=== PATIENT | female | born 1990 | race Hispanic/Latino ===

== ENCOUNTER 2025-08-28 17:23 | Emergency (ER) | payer OTHER ==
[~2025-08-28 17:23] MED LIST: Iopamidol 370 76% 100 ML VIAL ONE
[2025-08-28 18:35] LABS: BHCG - Serum Negative (NEGATIVE); Pregs Control Background? CLEAR/WHITE (CLR/WHITE); Pregs Control Bar Appear? YES (CONTROL BAR)
[2025-08-28 18:36] LABS: #Basophils 0.05 10x3/uL (0.0-0.2); #Eosinophils 0.03 10x3/uL (0.0-0.5); #Monocytes 0.55 10x3/uL (0.0-1.1); #Neutrophils 12.99 10x3/uL (1.5-8.4); %Basophils 0.3 % (0.0-2.0); %Eosinophils 0.2 % (0.0-6.0); %Lymphocytes 10.9 % (18.0-47.0); %Monocytes 3.6 % (0.0-10.0); %Neutrophils 84.4 % (40.0-75.0); Hematocrit 38.3 % (34.9-44.5); Hemoglobin 12.4 g/dL (12.0-15.5); Mean Corpuscular Hemoglobin 28.2 pg (27.0-33.0); Mean Corpuscular Volume 87.2 fL (81.6-98.3); Platelet Count 429 10x3/uL (150-450); Red Blood Cell (RBC) Count 4.39 10x6/uL (3.90-5.03); White Blood Cell (WBC) Count 15.38 10x3/uL (3.5-10.5)
[2025-08-28 18:41] LABS: ALT (SGPT) 42 U/L (Less than 34); AST (SGOT) 28 U/L (11-34); Albumin 3.8 g/dL (3.1-4.5); Alkaline Phosphatase 66 U/L (40-110); Anion Gap 15 mmol/L (10-20); BUN (Urea Nitrogen) 10 mg/dL (7.0-18.7); Bilirubin, Total 0.2 mg/dL (0.3-1.2); Calc. Creatinine Clearance 0 mL/min (70-130); Calcium 8.7 mg/dL (7.8-10.44); Carbon Dioxide 21 mmol/L (22-29); Chloride 104 mmol/L (98-107); Globulin 3.3 g/dL (2.4-3.5); Glucose 146 mg/dL (70-105); Lipase 17 U/L (8-78); Potassium 4.1 mmol/L (3.5-5.1); Sodium 136 mmol/L (136-145)
[2025-08-28 18:50] LABS: INR-International Normal Ratio 5.6; PTT 48.1 sec (22.0-33.0); Prothrombin Time 51.5 sec (9.5-12.1)
[2025-08-28 19:33] LABS: Troponin I 0.012 ng/mL (< 0.028)
[2025-08-28 19:58] LABS: Glucose, Urine (Dipstick) Normal (Negative); Leukocyte Negative (Negative); Protein, Urine (Dipstick) 15 mg/dl (Neg-Trace); Specific Gravity, Urine 1.010 (1.005-1.030)
[2025-08-28 20:24] LABS: Bacteria/HPF Rare-Few HPF (None Seen); CAUTI Indications for Culture Dysuria,urgency,freq; Mucous/LPF 1+ LPF (<2+); Urine Culture Reflex No No; WBC/HPF 0-3 HPF (0-3)
[2025-08-28 20:35] LABS: Hematocrit 30.6 % (34.9-44.5); Hemoglobin 9.8 g/dL (12.0-15.5)
[2025-08-28] MEDS ORDERED: ADMIXTURE FEE IV SCH (21:15)
[2025-08-28] MEDS ORDERED: HUMAN PROTHROMBIN CMP IV SCH (21:15)
[2025-08-28] MEDS ORDERED: Tranexamic Acid 1,000 MG/10 ML VIAL ONE (21:26)
[2025-08-28] MEDS ORDERED: Phytonadione 10 MG, Admixture Fee 1 EACH in Sodium Chloride 0.9% 50 ML IVPB SCH (22:00)
== END 2025-08-28 22:50 | disposition short-term general hospital (02) ==
LOC: CSHERS 17:23
DX: K66.1 Hemoperitoneum (principal); D68.9 Coagulation defect, unspecified; Z86.2 Personal history of diseases of the blood and blood-forming organs and certain disorders involving the immune mechanism; Z86.718 Personal history of other venous thrombosis and embolism; Z86.711 Personal history of pulmonary embolism; Z87.42 Personal history of other diseases of the female genital tract; Z79.899 Other long term (current) drug therapy
CPT/HCPCS: 36415; 36430; 70496; 71275; 74177; 80053; 81001; 83605; 83690; 83880; 84484; 84703; 85025; 85610; 85730; 86850; 86900; 86901; 87040; 87086; 93005; 96365; 96375; 96376; J2272; J3010; J3430; J7168; P9016; Q9967